=== PATIENT | female | born 1960 | race Caucasian/White ===

== ENCOUNTER 2016-09-29 14:10 | Emergency (ER) | payer BC, OTHER ==
[2016-09-29] MEDS ORDERED: KETOROLAC TROMETHAMINE 30 MG/ML VIAL ONE (15:04)
[2016-09-29] MEDS ORDERED: ONDANSETRON ODT 4 MG TAB.RAPDIS ONE (15:04)
--- NOTE | 2016-09-29 15:16 | RADIOLOGY REPORT ---
HISTORY: Injury with pain. COMPARISON: None available. FINDINGS: 4 views of the right wrist obtained. There are moderate to severe osteoarthritic changes of the first carpometacarpal joint. There is no f racture or malalignment. Bone mineralization is slightly decreased. IMPRESSION: 1. No fracture. Final Electronic Signature: This report was electronically signed by Clement Donaldson MD on 09/29/2016 3:1 3 PM. sross /
--- NOTE | 2016-09-29 16:07 | ER NURSING DOCUMENTATION ---
Nurse's Notes [facility] Name:Imani Pearl Age:56 yrs Sex:Female :1960 Arrival Date:09/29/2016 Time:14:10 Bed1 Private MD:Sunny Hamilton Diagnosis:Osteoarthritis Presentation: 09/29 14:22 Acuity: OCTAVIA 4 st 14:22 Presenting complaint: Patient states: pt states that this afternoon she had shooting st pain in her right hand worst with moving her wrist. Transition of care: Home. 14:22 Method Of Arrival: Private Vehicle st Triage Assessment: 14:24 General: Appears uncomfortable, Behavior is cooperative. Pain: Complains of pain in st Right first web space Pain radiates to right arm Pain currently is 5 out of 10 on a pain scale. At worst was 8 out of 10 on a pain scale. Pain began 3 hours ago. Pain: Aggravated by bending the right wrist. Cardiovascular: No deficits noted. Respiratory: No deficits noted. GI: No deficits noted. Historical: - Allergies: No known drug Allergies; - Home Meds: 1. None - PMHx: None; - PSHx: Hysterectomy; - Tetanus: < 10 years. - Ebola Screening: : Patient denies exposure to infectious person. Patient denies travel to an Ebola-affected area in the 21 days before illness onset. . - Immunization history: Pneumococcal vaccine status is unknown. - Social history: Smoking status: Patient states former smoker of tobacco. Patient uses alcohol occasionally. Patient/guardian denies using marijuana. Screenin:25 Infectious Disease Risk None. Abuse screen: Denies threats or abuse. Denies injuries st from another. pt feels safe at home. Nutritional screening: No deficits noted. Vital Signs: 14:25 BP 170 / 92; Pulse 87; Temp 97.9; Pulse Ox 98% on R/A; Pain 5/10; st 15:52 BP 147 / 86; Pain 8/10; st ED Course: 14:12 Patient arrived in ED. ama 14:12 Sunny Hamilton MD is Private Physician. ama 14:22 Jill Smyth, RN is Primary Nurse. st 14:[address] 14:25 Valuables Rem[address] with patient. st 14:35 Jay Mina MD is Attending Physician. tl1 15:02 Port Xray Completed. hz 15:51 Sunny Hamilton MD is Referral Physician. tl1 15:[address] Administered Medications: 14:55 Drug: Toradol 30 mg; Route: IM; Site: left deltoid; st 15:52 Follow up: Response: Pain is unchanged, physician notified st 14:55 Drug: Vicodin (5 mg-500 mg) 2 tabs; Route: PO; st 15:52 Follow up: Response: Pain is unchanged, physician notified st 14:55 Drug: Zofran 4 mg; Route: PO; st 15:52 Follow up: Response: Pain is unchanged, physician notified st Outcome: 15:58 Discharge ordered by . tl1 16:04 Discharged to home ambulatory. st 16:04 Condition: stable 16:04 Discharge instructions given to patient, Instructed on discharge instructions, follow up and referral plans. medication usage, Prescriptions given X 2. 16:[address] ED[address] 0616 09:23 Discharge F/U Call: Unable to reach: no answer st Signatures: Jill Smyth RN RN Adi Mcdonough, Reg Reg Jay Graham MD MD tl1 Nora Sena
--- NOTE | 2016-09-29 16:07 | ER PHYSICIAN DOCUMENTATION ---
Physician Documentation [facility] Name:Imani Peral Age:56 yrs Sex:Female :1960 Arrival Date:09/29/2016 Time:14:10 Bed1 Private MD:Sunny Hamilton ED, Tom Disposition: 09/29 17:00 Chart complete. tl1 Disposition: 09/29/16 15:58 Discharged to Home/Self Care. Impression: Osteoarthritis. - Condition is Good. - Discharge Instructions: OSTEOARTHRITIS. - Prescriptions for [place] 5- 325 mg Oral Tablet - take 1 tablet by ORAL route every 6 hours As needed; 20 tablet. Zofran 4 mg Oral Tablet - take 1-2 tablet by ORAL route every 4-6 hours As needed; 10 tablet. - Medical Reconciliation form form. - Follow up: Sunny Hamilton MD; When: 4- 6 days; Reason: Recheck today's complaints, Continuance of care. - Problem is new. - Symptoms have improved. - Notes: No vacuuming, dishes or laundry until you see your hand surgeon. HPI: 14:35 This 56 yrs old Female presents to ER via Private Vehicle with complaints of tl1 Hand Pain - R. 14:40 She had the abrupt onset today of pain in her right thenar eminence, which is now very tl1 tender and somewhat swollen. No recent trauma. She did fall on her hand about a year ago, but had an uneventful recovery from that. No numbness in her fingers. She does do a lot of typing.. Historical: - Allergies: No known drug Allergies; - Home Meds: 1. None - PMHx: None; - PSHx: Hysterectomy; - Tetanus: < 10 years. - Ebola Screening: : Patient denies exposure to infectious person. Patient denies travel to an Ebola-affected area in the 21 days before illness onset. . - Immunization history: Pneumococcal vaccine status is unknown. - Social history: Smoking status: Patient states former smoker of tobacco. Patient uses alcohol occasionally. Patient/guardian denies using marijuana. ROS: 14:40 MS/extremity: Positive for pain, swelling, tenderness, of the right hand base of first tl1 metacarpal. Exam: 14:40 Constitutional: This is a well developed, well nourished patient who is awake, alert, tl1 and in no acute distress. 14:40 Cardiovascular: Rate: normal. 14:40 Respiratory: the patient does not display signs of respiratory distress. 14:40 Musculoskeletal/extremity: Extremities: grossly normal except: noted in the right hand base of first metacarpal: pain, swelling, tenderness. 14:40 Skin: Exam negative for acute changes. Vital Signs: 14:25 BP 170 / 92; Pulse 87; Temp 97.9; Pulse Ox 98% on R/A; Pain 5/10; st 15:52 BP 147 / 86; Pain 8/10; st MDM: 14:35 Patient medically screened. tl1 15:30 Data reviewed: vital signs, nurses notes, radiologic studies, plain films, and as a tl1 result, I will discharge patient. Test interpretation: by ED physician or midlevel provider: plain radiologic studies. Counseling: I had a detailed discussion with the patient and/or guardian regarding: the historical points, exam findings, and any diagnostic results supporting the discharge/admit diagnosis, radiology results, the need for outpatient follow up, a hand specialist, to return to the emergency department if symptoms worsen or persist or if there are any questions or concerns that arise at home. Response to treatment: There is no appreciated change of the patient's symptoms at this time, and as a result, I will discharge patient. Special discussion: Pain seems to be related to an acute flare of osteoarthritis of the right thumb where there is significant degenerative changes and spurring on x-ray. doubt infection, gout.. 09/29 15:17 Order name: WRIST; [place] [id number]; Complete Time: 08:25 EDVA 09/30 08:25 Interpretation: see note. tl1 09/29 15:54 Order name: ORTHO: Splint; Complete Time: 15:54 st Dispensed Medications: 14:55 Drug: Toradol 30 mg; Route: IM; Site: left deltoid; st 15:52 Follow up: Response: Pain is unchanged, physician notified st 14:55 Drug: Vicodin (5 mg-500 mg) 2 tabs; Route: PO; st 15:52 Follow up: Response: Pain is unchanged, physician notified st 14:55 Drug: Zofran 4 mg; Route: PO; st 15:52 Follow up: Response: Pain is unchanged, physician notified st Signatures: Jill Smyth, RN RN st Jay Mina, MD tl1
== END 2016-09-29 16:07 | disposition home or self-care (01) ==
LOC: ER 14:10
DX: M18.9 Osteoarthritis of first carpometacarpal joint, unspecified (principal)
CPT/HCPCS: 96372; 99284; J1885